=== PATIENT | male | born 1950 | race Caucasian/White ===

== ENCOUNTER 2017-08-28 10:20 | Emergency (ER) | payer MEDICARE ==
[~2017-08-28] VITALS: Ht 167.6 cm; Wt 112.0 kg
[2017-08-29] MEDS ORDERED: ASPIRIN325 MG PO (12:48)
[2017-08-29] MEDS ORDERED: OMEPRAZOLE20 MG PO (12:49)
== END 2017-08-28 10:48 | disposition home or self-care (01) ==
LOC: ED 10:20
DX: M25.571 Pain in right ankle and joints of right foot (principal); W01.0XXA Fall on same level from slipping, tripping and stumbling without subsequent striking against object, initial encounter

== ENCOUNTER 2017-08-30 08:50 | Day surgery (SDC) | payer MEDICARE ==
[~2017-08-30] VITALS: Ht 167.6 cm; Wt 112.0 kg
[~2017-08-30 08:50] MED LIST: ASPIRIN325 MG PO; OMEPRAZOLE20 MG PO
[2017-08-30] MEDS ORDERED: GLUCOSAMINE &1 EAC1 PO (09:21)
[2017-08-30] MEDS ORDERED: MULTIVITAMINS1 EAC7 PO (09:21)
[2017-08-30] MEDS ORDERED: FLAX SEED OIL1000 MG PO (09:21)
[2017-08-30] MEDS ORDERED: MAGNESIUM400 MG PO (09:23)
[2017-08-30] MEDS ORDERED: METOPROLOL TART25 MG PO (10:06)
[2017-08-30] MEDS ORDERED: SIMVASTATIN40 MG PO (10:07)
[2017-08-30] MEDS ORDERED: METFORMIN HCL500 MG PO (10:07)
[2017-08-30] MEDS ORDERED: BENAZEPRIL HCL20 MG PO (10:08)
--- NOTE | 2017-08-30 10:10 | NUR ---
THIS RN TO BEDSIDE TO ASSIST EMERGENCY MEDICINE NURSE PRACTITIONER. MEDICAITONS GIVEN ORDERED. THIS RN ASSISTS WITH RLE BLOCK. PT PLACED ON 3L O2 NC, O2 MAINTAINING ABOVE 92%. BED RAILS UP. CALL LIGHT WITHIN REACH. PT RESTING WITH EYES CLOSED, RR = 16 BPM
--- NOTE | 2017-08-30 11:37 | NUR ---
08/30/17 1137 Azar,Chantel JOHNSON 1125 PT ARRIVED IN PACU SLEEPING. OXYGEN SATS RANGING FROM 90-100% ON 6L M. ENCOURAGING DEEP BREATHING.
--- NOTE | 2017-08-30 12:15 | NUR ---
FAMILY @ BS. CALL LIGHT W/IN REACH. CONTINUOUS PULSE OXIMETERY IN PLACE.
[2017-08-30] MEDS ORDERED: OXYCODONE HCL10 MG PO (13:57)
--- NOTE | 2017-08-30 15:04 | NUR ---
1400: PATIENT TOLERATED WATER AND PUDDING. ASSISTED OOB AND TO BATHROOM USING PERSONAL SCOOTER. PATIENT STEADY USING SCOOTER. VOID X 1 WITHOUT DIFFICULTY. PATIENT GETTING DRESSED WITH HELP FROM GIRLFRIEND. 1420: DISCHARGE INSTRUCTIONS GIVEN TO PATIENT AND GIRLFRIEND. IV DC'D WNL. PATIENT DISCHARGED TO HOME VIA WHEELCHAIR. 1450: TAXI ARRIVED FOR PATIENT. PATIENT ASSISTED IN TO TAXI.
--- NOTE | 2017-09-06 09:44 | OR ---
[facility] [address] [place], [place] [address] Signed DATE OF OPERATION: 08/30/2017 SURGEON: Luis E Edmondson MD PREOPERATIVE DIAGNOSIS: Fracture of lateral malleolus, right ankle with deltoid ligament tear. POSTOPERATIVE DIAGNOSIS: Fracture of lateral malleolus, right ankle with deltoid ligament tear. PROCEDURE: Open reduction and internal fixation of lateral malleolar fracture. ANESTHESIA: General. SPECIMENS AND COMPLICATIONS: There were no specimens or complications. TOURNIQUET TIME: About 35 minutes. WHAT WAS DONE: The patient was taken to the operating room. After anesthesia was induced and airway secured, the patient was positioned and prepped and draped in a routine sterile fashion. The leg was exsanguinated with an Esmarch bandage. Pneumatic tourniquet about the thigh was inflated to 300 mmHg pressure. A straight lateral approach was made over the distal fibula. The skin and subcutaneous tissue were divided as a full-thickness flap. The peroneals were then gently retracted posteriorly and the fracture site was exposed using a small periosteal elevator. Fracture site was then irrigated and reduced under direct vision. It was secured with a single lag screw. We then augmented the construct with a 10-hole one-third semitubular buttress plate. AP and lateral fluoroscopy confirmed an anatomic reduction with excellent alignment and position of the internal fixation devices. The wound was gently irrigated and closed in standard fashion. A sterile dressing was applied and the patient was awakened, taken to the recovery room where he arrived in stable condition. Counts were correct and antibiotic protocols were followed. Electronically Signed By: LUIS E EDMONDSON MD 09/06/17 0944 PATIENT NAME: NASRIN OLGUIN OPERATIVE REPORT DATE OF : 52 REPORT #: [id number] PHYSICIAN: LUIS E EDMONDSON MD PCP: OTHER PCP REPORT IS CONFIDENTIAL AND NOT TO BE RELEASED WITHOUT AUTHORIZATION [address] [address] Signed Luis E Edmondson MD WFB/MODL /[id number] Copies: ~ Electronically Signed By: LUIS E EDMONDSON MD 09/06/17 0944 PATIENT NAME: NASRIN OLGUIN OPERATIVE REPORT DATE OF : 52 REPORT #: [id number] PHYSICIAN: LUIS E EDMONDSON MD PCP: OTHER PCP REPORT IS CONFIDENTIAL AND NOT TO BE RELEASED WITHOUT AUTHORIZATION
== END 2017-08-30 14:20 | disposition home or self-care (01) ==
LOC: OPS 08:50 → DS 08:50 → OPS 10:18
PROVIDERS: Orthopaedic Surgery
PROC: 0QSJ04Z Reposition Right Fibula with Internal Fixation Device, Open Approach (ICD-10-PCS; principal; 2017-08-30 10:45)
DX: S82.61XA Displaced fracture of lateral malleolus of right fibula, initial encounter for closed fracture (principal); E11.9 Type 2 diabetes mellitus without complications; I10 Essential (primary) hypertension; E78.5 Hyperlipidemia, unspecified; K21.9 Gastro-esophageal reflux disease without esophagitis; F17.210 Nicotine dependence, cigarettes, uncomplicated; W18.30XA Fall on same level, unspecified, initial encounter; Z88.5 Allergy status to narcotic agent; Z79.899 Other long term (current) drug therapy; Z79.82 Long term (current) use of aspirin; Z79.84 Long term (current) use of oral hypoglycemic drugs
CPT/HCPCS: 01480; 62322; 73600; 76942; C1713; J0690; J1100; J1885; J2250; J2405; J2704; J2765; J2795; J3010; J7120